=== PATIENT | female | born 1940 | race Caucasian/White ===

== ENCOUNTER → 2017-06-08 | Outpatient (CLI) | payer OTHER | LOC: CIMAGING 12:31 | PROVIDERS: ATTEND Internal Medicine | DX: M79.672 Pain in left foot (principal); M19.072 Primary osteoarthritis, left ankle and foot; M77.32 Calcaneal spur, left foot; M85.89 Other specified disorders of bone density and structure, multiple sites | CPT/HCPCS: 73630-PO ==

== ENCOUNTER → 2017-07-05 | Outpatient (CLI) | payer OTHER | LOC: BHFA 14:00 | PROVIDERS: ATTEND Internal Medicine Cardiovascular Disease | DX: I10 Essential (primary) hypertension (principal); I35.1 Nonrheumatic aortic (valve) insufficiency ==